=== PATIENT | male | born 1980 | race Caucasian/White ===

== ENCOUNTER 2019-02-20 18:56 | Emergency (ER) | payer SELFPAY ==
[~2019-02-20] VITALS: Ht 170.2 cm; Wt 67.0 kg
[~2019-02-20 18:56] MED LIST: CLIN300C10 PO; MUPI22OI2 TOP
[2019-02-20 19:01] VITALS: Ht 170.2 cm; Wt 67.0 kg
[2019-02-20 21:09] VITALS: BP 134/70; PULSE 94; RESP 20
== END 2019-02-20 21:10 | disposition home or self-care (01) ==
LOC: FTE 18:56
DX: L02.413 Cutaneous abscess of right upper limb (principal); L08.9 Local infection of the skin and subcutaneous tissue, unspecified
CPT/HCPCS: 99283